=== PATIENT | male | born 1950 | race Caucasian/White ===

== ENCOUNTER 2021-12-15 13:52 | Inpatient (IN) | payer MEDICARE, MEDICAID ==
[~2021-12-15] VITALS: Ht 167.6 cm; Wt 67.6 kg
[2021-12-15 14:30] LABS: BASOPHILS % (AUTO) 0.6 % (0.0-2.0); EOSINOPHILS % (AUTO) 0.5 % (1.0-6.0); HEMATOCRIT 41.6 % (41-53); HEMOGLOBIN 14.1 g/dL (13.5-17.5); LYMPHOCYTES # (AUTO) 1.8 K/uL (1.0-4.8); LYMPHOCYTES % (AUTO) 24.3 % (22.0-44.0); MEAN CORPUSCULAR HEMOGLOBIN 31.4 pg (26.0-34.0); MEAN CORPUSCULAR HGB CONC 33.9 G/dL (31.0-37.0); MEAN CORPUSCULAR VOLUME 93 fL (80-100); MONOCYTES # (AUTO) 0.5 K/uL (0.1-1.0); MONOCYTES % (AUTO) 6.2 % (2.0-9.0); NEUTROPHILS # (AUTO) 5.2 K/uL (1.8-7.7); NEUTROPHILS % (AUTO) 68.4 % (40.0-70.0); PLATELET COUNT (AUTO) 358 K/uL (150-450); RED BLOOD CELL COUNT(AUTO) 4.49 MIL/uL (4.50-5.90)
[2021-12-15] MEDS ORDERED: LORazepam 1 MG TABLET PO ONE (14:45)
[2021-12-15 14:55] LABS: ANION GAP 12 mmol/L (8-16); CALCIUM, TOTAL 9.2 mg/dL (8.8-10.5); CARBON DIOXIDE 26 mmol/L (22-29); CHLORIDE 104 mmol/L (98-107); CREATININE 0.94 mg/dL (0.60-1.30); GLOMERULAR FILTR. RATE CALC > 60 mL/min (>60); GLUCOSE,RANDOM 117 mg/dL (70-110); POTASSIUM 3.8 mmol/L (3.5-5.1); SODIUM SERUM 142 mmol/L (136-145); UREA NITROGEN, BLOOD 18 mg/dL (7-18)
[2021-12-15 15:01] LABS: ALANINE AMINOTRANSFERASE 34 U/L (12-78); ALKALINE PHOSPHATASE 68 U/L (46-116); ASPARTATE AMINOTRANSFERASE 35 U/L (15-37); BILIRUBIN,TOTAL 0.8 mg/dL (0.1-1.0); TOTAL PROTEIN, SERUM 8.1 g/dL (6.4-8.2)
[2021-12-15 17:11] LABS: COVID AG,FIA SOURCE NASOPHARYNGEAL
[2021-12-15 21:42] VITALS: BP 151/70
[2021-12-15] MEDS: LITHIUM CARBONATE 300 MG CAPSULE PO SCH (21:46)
[2021-12-15] MEDS: ZOLPIDEM TARTRATE 10 MG TABLET PO PRN (21:46)
[2021-12-15] MEDS ORDERED: PNEUMOCOCCAL VACCINE POLYVALENT 0.5 ML VIAL [PPSV23] IM. ONE (22:15)
[2021-12-16 00:31] VITALS: BP 142/62
[2021-12-16 08:21] VITALS: BP 124/74
[2021-12-16] MEDS: AmLODIPine BESYLATE 5 MG TABLET PO SCH (08:26)
[2021-12-16] MEDS: LITHIUM CARBONATE 300 MG CAPSULE PO SCH ×2 (08:26→17:01)
[2021-12-16] MEDS: LORazepam 2 MG TABLET PO PRN ×2 (08:26→17:01)
[2021-12-16] MEDS ORDERED: BENZOCAINE/MENTHOL LOZENGE PO PRN (09:15)
[2021-12-16] MEDS ORDERED: BACITRACIN 28 GM OINTMENT TP PRN (09:15)
[2021-12-16] MEDS ORDERED: MAGNESIUM HYDROXIDE SUSPENSION 30 ML UDCUP PO PRN (09:15)
[2021-12-16] MEDS ORDERED: OMEPRAZOLE 20 MG CAPSULE PO PRN (09:15)
[2021-12-16] MEDS ORDERED: PETROLATUM,WHITE 28 GM JELLY TP PRN (09:15)
[2021-12-16] MEDS ORDERED: ACETAMINOPHEN 325 MG TABLET PO PRN (09:15)
[2021-12-16] MEDS ORDERED: ONDANSETRON HCL 4 MG TABLET PO PRN (09:15)
[2021-12-16] MEDS ORDERED: MAG HYDROX/AL HYDROX/SIMETH ES 30 ML SUSPENSION UDCUP PO PRN (09:15)
[2021-12-16] MEDS ORDERED: LOPERAMIDE HCL 2 MG CAPSULE PO PRN (09:15)
[2021-12-16] MEDS ORDERED: ALBUTEROL SULFATE HFA 90 MCG/PUFF 8 GM INHALER IH PRN (09:15)
[2021-12-16] MEDS ORDERED: IBUPROFEN 600 MG TABLET PO PRN (09:15)
[2021-12-16] MEDS ORDERED: CloNIDine HCL 0.1 MG TABLET PO PRN (09:15)
[2021-12-16] MEDS ORDERED: DOCUSATE SODIUM 100 MG CAPSULE PO PRN (09:15)
[2021-12-16 16:11] VITALS: BP 117/63
[2021-12-16] MEDS: RisperiDONE 1 MG TABLET PO SCH (17:01)
[2021-12-17 01:55] VITALS: BP 141/63
[2021-12-17] MEDS: LORazepam 2 MG TABLET PO PRN ×2 (04:53→16:33)
[2021-12-17 08:23] VITALS: BP 138/71
[2021-12-17] MEDS: AmLODIPine BESYLATE 5 MG TABLET PO SCH (08:27)
[2021-12-17] MEDS: LITHIUM CARBONATE 300 MG CAPSULE PO SCH ×2 (08:27→16:33)
[2021-12-17] MEDS: RisperiDONE 1 MG TABLET PO SCH ×2 (08:29→16:32)
[2021-12-17 16:07] VITALS: BP 107/64
[2021-12-18 08:09] VITALS: BP 133/59
[2021-12-18] MEDS: AmLODIPine BESYLATE 5 MG TABLET PO SCH (09:30)
[2021-12-18] MEDS: LITHIUM CARBONATE 300 MG CAPSULE PO SCH ×2 (09:30→16:27)
[2021-12-18] MEDS: RisperiDONE 1 MG TABLET PO SCH ×2 (09:30→16:27)
[2021-12-18 16:27] VITALS: BP 134/64
[2021-12-18] MEDS: ZOLPIDEM TARTRATE 10 MG TABLET PO PRN (22:30)
[2021-12-19 05:06] VITALS: BP 132/62
[2021-12-19 08:14] VITALS: BP 133/55
[2021-12-19] MEDS: LITHIUM CARBONATE 300 MG CAPSULE PO SCH ×2 (08:14→16:57)
[2021-12-19] MEDS: AmLODIPine BESYLATE 5 MG TABLET PO SCH (08:14)
[2021-12-19] MEDS: LORazepam 2 MG TABLET PO PRN ×2 (08:15→16:57)
[2021-12-19] MEDS: RisperiDONE 2 MG TABLET PO SCH ×2 (08:15→16:57)
[2021-12-19] MEDS: HALOPERIDOL 5 MG TABLET PO PRN (08:15)
[2021-12-19 16:26] VITALS: BP 113/62
[2021-12-20 04:52] VITALS: BP 125/67
[2021-12-20 08:08] VITALS: BP 139/65
[2021-12-20] MEDS: AmLODIPine BESYLATE 5 MG TABLET PO SCH (08:24)
[2021-12-20] MEDS: LITHIUM CARBONATE 300 MG CAPSULE PO SCH (08:24)
[2021-12-20] MEDS: RisperiDONE 2 MG TABLET PO SCH (08:25)
[2021-12-20] MEDS: HALOPERIDOL 5 MG TABLET PO PRN (08:25)
[2021-12-20] MEDS: LORazepam 2 MG TABLET PO PRN (08:25)
[2021-12-20] MEDS ORDERED: RISP2TAB45 PO (12:27)
[2021-12-20] MEDS ORDERED: LITH300C3 PO (12:27)
== END 2021-12-20 15:46 | disposition home or self-care (01) | DRG 885 ==
LOC: EMS 14:02 → B3A 19:18
PROVIDERS: ADMIT Psychiatry & Neurology Psychiatry; ATTEND Psychiatry & Neurology Psychiatry
DX: F20.9 Schizophrenia, unspecified (principal); F31.9 Bipolar disorder, unspecified; K59.00 Constipation, unspecified; I10 Essential (primary) hypertension; G47.00 Insomnia, unspecified; F41.9 Anxiety disorder, unspecified; E78.00 Pure hypercholesterolemia, unspecified; Z91.14 Patient's other noncompliance with medication regimen; Z88.0 Allergy status to penicillin; Z79.899 Other long term (current) drug therapy
CPT/HCPCS: 80053; 80178; 85025; 99285; G0480